=== PATIENT | female | born 1965 | race Caucasian/White ===

== ENCOUNTER 2018-01-14 15:12 | Emergency (ER) | payer OTHER ==
[~2018-01-14] VITALS: Ht 160 cm; Wt 95.3 kg
[~2018-01-14 15:12] MED LIST: HYZAAR 100-121 UDTAB
[2018-01-14] MEDS ORDERED: JANUMET XR 1001 EACH (15:41)
== END 2018-01-14 22:00 | disposition home or self-care (01) ==
LOC: ER 15:12
DX: N30.81 Other cystitis with hematuria (principal)

== ENCOUNTER 2018-11-29 08:17 | Emergency (ER) | payer OTHER ==
[~2018-11-29] VITALS: Ht 160 cm; Wt 96.2 kg
[~2018-11-29 08:17] MED LIST changes: +JANUMET XR 1001 EACH
[2018-11-29] MEDS ORDERED: DIAZEPAM10 MG PO (11:37)
[2018-11-29] MEDS ORDERED: BACTRIM DS TAB1 EACH PO (11:37)
[2018-11-29] MEDS ORDERED: NEURONTIN300 MG PO (11:37)
== END 2018-11-29 12:13 | disposition home or self-care (01) ==
LOC: ER 08:17
DX: M79.651 Pain in right thigh (principal); N39.0 Urinary tract infection, site not specified